=== PATIENT | male | born 1945 | race Caucasian/White ===

== ENCOUNTER 2018-07-08 11:25 | Day surgery (SDC) | payer BC, SELFPAY ==
--- NOTE | 2018-07-08 | PATH_ITS ---
[facility] Accession Number: [id number] . 01 Material submitted: . PART A: POLYP AT 35CM PART B: POLYP AT 30CM . 02 Diagnosis: A. Biopsy, Colon Polyp At 35 CM: Hyperplastic polyp. . B. Biopsy, Colon Polyp At 30 CM: Tubular adenoma. BFI/07/09/2018 . 02 Electronically signed: . Bill Baugh MD, Pathologist NPI- [id number] . 01 Gross description: . Part A: POLYP AT 35CM: Received in formalin is 1 fragment(s) of murray, soft tissue measuring 0.5 x 0.3 x 0.3 cm submitted entirely in 1 cassette(s) Part B: POLYP AT 30CM: Received in formalin is 1 fragment(s) of murray, soft tissue measuring 0.5 x 0.4 x 0.3 cm submitted entirely in 1 cassette(s) /CKI /CKI . 02 Pathologist provided ICD-10: D12.5 . 02 CPT . 954164, 607397 Performed at: 01 [facility] [address] [facility], [place], [place] [id number] MD Niko Marquez MD Phone: [phone] Performed at: 02 [facility] [address] [place], [place] [id number] MD Marjan Ortega MD Phone: [phone]
[2018-07-08] MEDS: SODIUM CHLORIDE 0.9% 1,000 ML 100 ML IV (12:36)
[2018-07-08 12:45] VITALS: BP 150/91; PULSE 70; RESP 20; TEMP 36.4; O2SAT 99; BMI 24.8
--- NOTE | 2018-07-08 13:58 | PM.HP.1 ---
History of Present Illness Date Patient Seen: 07/08/18 Time Patient Seen: 13:58 Chief complaint: [id number] SCREENING COLONOSCOPY Narrative: Lio is a very pleasant 73-year-old gentleman who is here for colonoscopy. Says he has had polyps in the past but a year ago he had colonoscopy and had 4 large ones removed. It was recommended at that time that he should have repeated a year. He is here today to complete that procedure. He denies any change in his bowel habits. He denies any change in his health. Patient History Surgical History History of hip replacement History of hip replacement Social History household members: spouse Family & Social History Social History: household members spouse Meds Home Medications Medication Instructions Recorded Confirmed Type CHOLECALCIFEROL (VITAMIN D) 2,000 iu PO Q DAY #0 09/13/10 History vit C,R-Qk-ezzfu-lutein-zeaxan 1 cap PO QDAY #0 10/27/12 History [Ocuvite Lutein and Zeaxanthin] [PROBIOTIC] Q DAY #0 05/15/16 History felodipine 5 mg PO QDAY #90 tab 08/02/16 07/08/18 Rx alprazolam 0.25 mg PO TID #30 09/24/16 Rx clonidine HCl 0.4 mg PO HS #180 tab 09/27/16 Rx furosemide 10 mg PO QDAY #45 tab 12/28/16 07/08/18 Rx losartan 100 mg PO QDAY #90 tab 12/28/16 07/08/18 Rx metoprolol succinate [Toprol XL] 50 mg PO QDAY #90 tabs 12/28/16 07/08/18 Rx allopurinol 300 mg PO DAILY 07/08/18 07/08/18 History magnesium 400 mg PO DAILY 07/08/18 07/08/18 History Allergies Allergy/AdvReac Type Severity Reaction Status Date / Time Penicillins [PENICILLINS] Allergy Severe ACHILLES Verified 07/08/18 12:36 TENDON PAIN alendronate sodium Allergy Intermediate UNKNOWN Verified 07/08/18 12:36 [ALENDRONATE SODIUM] morphine [MORPHINE] Allergy Intermediate N/V Verified 07/08/18 12:36 oxycodone [OXYCODONE] Allergy Intermediate N/V Verified 07/08/18 12:36 Negkhls-Eco-Pfo Reductase Allergy Intermediate MUSCLE Verified 07/08/18 12:36 Inhibitor PAIN, [JWMWQQC-FPR-EHC REDUCTASE INHIBITOR] TERASOZIN Allergy Severe TACHYTCARDI Uncoded 07/24/17 11:50 A ALL OPIATES Allergy Intermediate N/V, Uncoded 07/24/17 11:50 CONSTIPATION RISENDRONATE Allergy Intermediate UNKNOWN Uncoded 07/24/17 11:50 Review of Systems Review of Systems All systems reviewed & are unremarkable except as noted in HPI and below Exam Vital Signs (past 8 hours): - 07/08/18 12:45 Temperature 97.6 F Pulse Rate 70 Respiratory Rate 20 Blood Pressure 150/91 H Pulse Oximetry 99 Oxygen Delivery Method Room Air Narrative Exam Narrative: Pleasant gentleman in no distress HEENT: Normocephalic and atraumatic, pupils equal round reactive to light accommodation with anicteric sclera lungs: Clear bilaterally Heart: Regular rate and rhythm abdomen: Soft, nontender, active bowel sounds extremities: Warm and well-perfused and without edema Assessment & Plan Assessment & Plan narrative: pleasant 73-year-old gentleman with a personal history of many colon polyps. We discussed the risks and benefits of colonoscopy the patient has expressed a desire to complete the procedure today.
[2018-07-08] MEDS: MIDAZOLAM 5 MG/5 ML VIAL IV (14:00)
[2018-07-08] MEDS: fentaNYL 250 MCG/5 ML INJ IV (14:01)
--- NOTE | 2018-07-08 14:01 | P.HP_ITS ---
History of Present Illness Date Patient Seen: 07/08/18 Time Patient Seen: 13:58 Chief complaint: [id number] SCREENING COLONOSCOPY Narrative: Lio is a very pleasant 73-year-old gentleman who is here for colonoscopy. Says he has had polyps in the past but a year ago he had colonoscopy and had 4 large ones removed. It was recommended at that time that he should have repeated a year. He is here today to complete that procedure. He denies any change in his bowel habits. He denies any change in his health. Patient History Surgical History History of hip replacement History of hip replacement Social History household members: spouse Family & Social History Social History: household members spouse Meds Home Medications Medication Instructions Recorded Confirmed Type CHOLECALCIFEROL (VITAMIN D) 2,000 iu PO Q DAY #0 09/13/10 History vit C,P-Jl-ftgbv-lutein-zeaxan 1 cap PO QDAY #0 10/27/12 History [Ocuvite Lutein and Zeaxanthin] [PROBIOTIC] Q DAY #0 05/15/16 History felodipine 5 mg PO QDAY #90 tab 08/02/16 07/08/18 Rx alprazolam 0.25 mg PO TID #30 09/24/16 Rx clonidine HCl 0.4 mg PO HS #180 tab 09/27/16 Rx furosemide 10 mg PO QDAY #45 tab 12/28/16 07/08/18 Rx losartan 100 mg PO QDAY #90 tab 12/28/16 07/08/18 Rx metoprolol succinate [Toprol XL] 50 mg PO QDAY #90 tabs 12/28/16 07/08/18 Rx allopurinol 300 mg PO DAILY 07/08/18 07/08/18 History magnesium 400 mg PO DAILY 07/08/18 07/08/18 History Allergies Allergy/AdvReac Type Severity Reaction Status Date / Time Penicillins [PENICILLINS] Allergy Severe ACHILLES Verified 07/08/18 12:36 TENDON PAIN alendronate sodium Allergy Intermediate UNKNOWN Verified 07/08/18 12:36 [ALENDRONATE SODIUM] morphine [MORPHINE] Allergy Intermediate N/V Verified 07/08/18 12:36 oxycodone [OXYCODONE] Allergy Intermediate N/V Verified 07/08/18 12:36 Avnfdjb-Tes-Pdq Reductase Allergy Intermediate MUSCLE Verified 07/08/18 12:36 Inhibitor PAIN, [JWMYIIR-ESH-GPQ REDUCTASE INHIBITOR] TERASOZIN Allergy Severe TACHYTCARDI Uncoded 07/24/17 11:50 A ALL OPIATES Allergy Intermediate N/V, Uncoded 07/24/17 11:50 CONSTIPATION RISENDRONATE Allergy Intermediate UNKNOWN Uncoded 07/24/17 11:50 Review of Systems Review of Systems All systems reviewed & are unremarkable except as noted in HPI and below Exam Vital Signs (past 8 hours): - 07/08/18 12:45 Temperature 97.6 F Pulse Rate 70 Respiratory Rate 20 Blood Pressure 150/91 H Pulse Oximetry 99 Oxygen Delivery Method Room Air Narrative Exam Narrative: Pleasant gentleman in no distress HEENT: Normocephalic and atraumatic, pupils equal round reactive to light accommodation with anicteric sclera lungs: Clear bilaterally Heart: Regular rate and rhythm abdomen: Soft, nontender, active bowel sounds extremities: Warm and well-perfused and without edema Assessment & Plan Assessment & Plan narrative: pleasant 73-year-old gentleman with a personal history of many colon polyps. We discussed the risks and benefits of colonoscopy the patient has expressed a desire to complete the procedure today.
--- NOTE | 2018-07-08 14:27 | PM.OP.1 ---
Operative Date/Time/Diagnoses Date of procedure: 07/08/18 Time of procedure: 14:27 Pre-op diagnosis: Personal history of colon polyps Post-op diagnosis: same Procedure & Clinicians Procedure: colonoscopy to the cecum with polypectomy x2 Same procedure as scheduled: Yes Indications: last colonoscopy 1 year ago with multiple polyps Surgeon: Zandra Elias Click Yes if Unassisted: Yes Anesthesia Type: Sedation ( Versed 10 mg; fentanyl 300 mcg) Operative Notes Findings: 1. Adequate prep 2. sessile polyp - approximately 3 mm- at 35 cm from the anal verge. Removed with cold forceps and retained for pathology 3. Semi pedunculated polyp at 30 cm from the anal verge. Removed with snare and cautery and retained for pathology 4. significant diverticulosis from 40 cm to the anal rectal junction 5. Grade 2 internal hemorrhoids Closure Type: not applicable Specimen(s): other ( 1. Polyp at 35 cm, 2. Polyp at 30 cm) Estimated Blood Loss (mL): 2 Procedure in detail: After obtaining informed consent, the patient was brought to the GI suite and placed in the left lateral decubitus position on the examination table. After placement of appropriate monitors, the patient was given incremental doses of Versed and Fentanyl until an appropriate level of sedation was achieved. A time out was held per SCOAP protocol. A digital rectal examination was performed and did not reveal any masses or obstructing lesions. The colonoscope was gently passed into the patient's anus and the entire colon navigated to the level of the cecum with minimal difficulty. Once in the cecum, the scope was withdrawn being sure to go before and beyond all mucosal folds and prominences and get an excellent examination. The findings are noted above. At the level of the rectal vault, the scope was retroflexed and the internal anal canal was examined. The scope was straightened and air aspirated from the colon. The instrument was removed from the patient's body and the procedure was concluded. The patient was allowed to awaken from sedation without difficulty and taken to the post-anesthesia care unit in good condition. total sedation time 31 min total withdrawal time 12 min Complications: none Condition: stable Disposition: PACU Plan for aftercare: 1. Discharge to home 2. Plan for next colonoscopy in 1 year or as clinically indicated 3. We will contact you with the final pathology results and any additional recommendations
[2018-07-08 14:31] VITALS: BP 120/75; PULSE 67; RESP 15; O2SAT 99
[2018-07-08 14:36] VITALS: BP 121/71; PULSE 62; RESP 10; O2SAT 99
--- NOTE | 2018-07-08 14:38 | SUR.PHASEI ---
Assumed care. VS stable. Abd soft. Pt lying on lt side, mostly sleeping. Denied pain.
[2018-07-08 14:41] VITALS: BP 132/72; PULSE 63; RESP 10; O2SAT 98
[2018-07-08 14:55] VITALS: BP 150/83; PULSE 67; RESP 15; TEMP 36.6; O2SAT 99
== END 2018-07-08 15:11 | disposition home or self-care (01) ==
PROVIDERS: Family Provider Family Medicine; PCP Family Medicine; Visit Provider Surgery
PROC: 0DJD8ZZ Inspection of Lower Intestinal Tract, Via Natural or Artificial Opening Endoscopic (ICD-10-PCS; CPT 45378; principal; 2018-07-08 14:00)
DX: Z86.010 Personal history of colon polyps (principal); K57.30 Diverticulosis of large intestine without perforation or abscess without bleeding; K64.1 Second degree hemorrhoids; D12.5 Benign neoplasm of sigmoid colon
CPT/HCPCS: 45385; 45380; 99152; 99153; J2250; J3010

== ENCOUNTER 2018-09-02 10:13 | Day surgery (SDC) | payer BC, SELFPAY ==
[2018-09-02 11:43] VITALS: BP 148/85; PULSE 61; RESP 18; TEMP 36.5; O2SAT 99; BMI 25.0
[2018-09-02] MEDS: PROPARACAINE 0.5% OPHTH SOL 2 DROPS EYE-OP (11:43)
[2018-09-02] MEDS: CATARACT EYE COMPOUND (10 DROPS/SYRINGE) 3 DROPS EYE-OP (11:45)
--- NOTE | 2018-09-02 12:41 | PM.PREOP ---
Pre-operative Note Interval Note History & Physical reviewed/Exam performed by Physician: No Changes to H&P: No
--- NOTE | 2018-09-02 12:41 | PM.OP.1 ---
Operative Date/Time/Diagnoses Pre-op diagnosis: Nuclear Cataract Left eye Post-op diagnosis: same Procedure & Clinicians Surgeon: Dl Calzada Anesthesia Type: MAC +/- and Sedation Operative Notes Procedure in detail: Patient brought to the operating suite. Tetracaine drops placed in the left eye. Patient was prepped and draped in sterile manner. Wire lid speculum was placed in the eye. Betadine drops were placed on the eye. This was irrigated. Lidocaine jelly was placed on the eye. A paracentesis port was created with a side-port blade. 0.1 mL 1% preservative free lidocaine was injected into the anterior chamber. The anterior chamber was deepened with viscoelastic. 2.6 mm keratome was used to create a temporal clear corneal incision. Cystotome and Utrata forceps were used to create continuous tear capsulorrhexis. Balanced salt solution was used to hydro dissect the nucleus. The phacoemulsification handpiece was inserted and the nucleus was removed using the stop and chop technique. The irrigation aspiration handpiece was inserted and the remaining cortex was removed. Anterior chamber was deepened with viscoelastic. An Steiner ZCB00 intraocular lens with a power of 23.5 was injected into the capsular bag. Irrigation aspiration handpiece was inserted and the remaining viscoelastic was removed. Incision was hydrated with balanced salt solution and found to be leak free with pressure with Weck-Mary Jane sponges. 0.1 mL Vigamox injected anterior chamber. 0.3 mL Kenalog 10 mg was injected subconjunctivally. Lid speculum was removed. The patient left the operating room in excellent condition. Complications: none Condition: stable Disposition: same day surgery
[2018-09-02] MEDS: MOXIFLOXACIN OPHTH DROPS 3 ML BOTTLE 2 DROPS INJ (13:29)
[2018-09-02] MEDS: PHENYLEPHRINE/LIDOCAINE VIAL (OR) 0.2 ML EYE-OP (13:29)
[2018-09-02] MEDS: LIDOCAINE JELLY 2% 5 ML 1 APPLIC TOP (13:29)
[2018-09-02] MEDS: CHONDROIDTIN/SOD HYALURONATE 1.05 ML SYRINGE INTRAOCULA (13:29)
[2018-09-02] MEDS: BALANCED SALT IRRIG SOLN NO.2 500 ML, EPINEPHrine 1 MG IRR (13:30)
[2018-09-02] MEDS: TETRACAINE 0.5% OPHTH DROPS 4 ML 2 DROPS EYE-OP (13:30)
[2018-09-02] MEDS: TRIAMCINOLONE 50 MG/5 ML VIAL INJ (13:30)
--- NOTE | 2018-09-02 13:37 | PM.PREOP ---
Pre-operative Note Interval Note History & Physical reviewed/Exam performed by Physician: Yes Changes to H&P: Yes
[2018-09-02 13:43] VITALS: BP 155/76; PULSE 54; RESP 15; TEMP 36.1; O2SAT 98
== END 2018-09-02 13:55 ==
LOC: OR 10:16
PROVIDERS: PCP Family Medicine; Visit Provider Ophthalmology
PROC: (CPT 66984; principal; 2018-09-02 13:15)
DX: H25.12 Age-related nuclear cataract, left eye (principal); I10 Essential (primary) hypertension
CPT/HCPCS: 66984; J0171; J2250; J3010; J3301

== ENCOUNTER → 2021-02-17 08:39 | Outpatient (CLI) | payer BC, SELFPAY ==
--- NOTE | 2021-02-17 08:40 | DI.US.S_ITS ---
PROCEDURE: US SCROTUM INDICATIONS: testicular pain TECHNIQUE: Real-time scanning was performed of the scrotum and testicles, with image documentation. Color and pulse Doppler interrogation was performed of both testicles. COMPARISON: None. FINDINGS: Right: Testicle measures 3.9 x 1.6 x 2.7 cm, and is heterogeneous in echotexture. Scattered foci of calcifications are present. Epididymis is not well visualized. There are 2 cystic structures which appear to be within the pampiniform plexus largest measuring roughly 1.0 cm. No hydrocele or varicoceles. Overlying scrotal skin is slightly thickened Left: Left testicle surgically absent. Doppler: Color and pulse Doppler demonstrate patent vascularity the right testicle. IMPRESSION: 1. Heterogeneous appearance of the right testicle with internal calcifications. The findings suggest sequelae of prior trauma or infection. However, the differential also includes neoplastic infiltration. Recommend correlation with clinical history. Dictated by: Sabas JOHNSON Interpreted: Niko Spears MD on 02/17/2021 at 10:41 Transcribed by: SONIDO on 02/17/2021 at 11:09 Approved by: Niko Spears M.D. on 02/18/2021 at 1:05
== END ==
PROVIDERS: PCP Family Medicine; Referring Provider Specialist; Visit Provider Specialist
DX: N50.811 Right testicular pain (principal); Z85.47 Personal history of malignant neoplasm of testis
CPT/HCPCS: 76870

== ENCOUNTER 2023-07-23 11:10 | Day surgery (SDC) | payer BC, SELFPAY ==
--- NOTE | 2023-07-23 | PATH_ITS ---
[facility] Accession Number: [id number] No. of containers..01 Tissue . 01 Material submitted: . rectum - RECTAL POLYP . 01 Diagnosis: RECTAL POLYP: Hyperplastic polyp. STO 07/26/2023 1434 Local . 01 Electronically signed: . Niko Marquez MD, Pathologist NPI- [id number] . 01 Gross description: . RECTAL POLYP: Received in formalin is 1 fragment(s) of murray, soft tissue measuring 0.3 x 0.3 x 0.2 cm submitted entirely in 1 cassette(s) /DELPHINE 07/26/2023 1434 Local . 01 Pathologist provided ICD-10: K63.5 . 01 CPT . 059379 Specimen Comment: A courtesy copy of this report has been sent to [phone] Performed at: 01 [facility] [address] [place] [id number] MD Niko Marquez MD Phone: [phone]
[2023-07-23 12:25] VITALS: BP 153/92; PULSE 73; RESP 18; TEMP 36.3; O2SAT 96
[2023-07-23] MEDS: LACTATED RINGERS 1,000 ML 150 ML IV (12:37)
--- NOTE | 2023-07-23 13:40 | PM.HP.1 ---
History of Present Illness History of Present Illness Date Patient Seen: 07/23/23 Time Patient Seen: 13:40 Chief complaint: Screening Colonoscopy Narrative: 78-year-old male personal history of colonic polyps here for screening colonoscopy. Last colonoscopy 5 years ago significant for benign polyps. No family history of intestinal malignancy. No abdominal concerns today. [facility] Medical History BPH w urinary obs/LUTS Right testicular pain Surgical History History of hip replacement History of hip replacement Social History household members: spouse Smoking Status: Never smoker alcohol intake: current Meds Home Medications and Allergies Home Medications Medication Instructions Recorded Confirmed Type CHOLECALCIFEROL (VITAMIN D) 2,000 iu PO Q DAY ##0 09/13/10 03/02/21 History vit C,V-Qi-jzmdww-lutein-zeaxan 60 1 cap PO QDAY ##0 10/27/12 03/02/21 History mg-13.5 mg-15 mg-2 mg-6 mg capsule (Ocuvite Lutein and Zeaxanthin) clonidine HCl 0.2 mg tablet 0.4 mg (2 x 0.2 mg) PO HS #180 tabs 09/27/16 03/02/21 Rx furosemide 20 mg tablet 10 mg (1/2 x 20 mg) PO QDAY #45 12/28/16 03/02/21 Rx tabs allopurinol 300 mg tablet 300 mg PO DAILY 07/08/18 03/02/21 History tamsulosin 0.4 mg capsule 0.4 mg PO BEDTIME #90 caps 01/26/21 03/02/21 Rx peg 3350-sod sulf,gwjld-koa-cfg 1,000 ml PO DIRECTED #2,000 mL 06/12/23 Rx 178.7-7.3-0.5-1.12-0.9 gram oral soln (Suflave) felodipine 5 mg tablet,extended 2.5 mg PO QDAY 07/23/23 07/23/23 History release 24 hr Allergies Allergy/AdvReac Type Severity Reaction Status Date / Time alendronate sodium Allergy Intermediate Muscle Pain Verified 07/23/23 12:07 [ALENDRONATE SODIUM] morphine [MORPHINE] AdvReac Mild N/V Verified 07/23/23 12:07 oxycodone [OXYCODONE] AdvReac Mild N/V Verified 07/23/23 12:07 Gsgruep-OYV-WvG Reductase AdvReac Mild MUSCLE Verified 07/23/23 12:07 Inhibitor PAIN, [ZBXWMNF-JEM-PYN REDUCTASE INHIBITOR] RISENDRONATE Allergy Intermediate Muscle Pain Uncoded 07/23/23 12:07 TERASOZIN Allergy Intermediate TACHYTCARDI Uncoded 07/23/23 12:07 A ALL OPIATES AdvReac Mild N/V, Uncoded 07/23/23 12:07 CONSTIPATION Exam Vital Signs (past 8 hours): - 07/23/23 12:25 Temperature 97.3 F L Pulse Rate 73 Respiratory Rate 18 Blood Pressure 153/92 H Pulse Oximetry 96 Oxygen Delivery Method Room Air Oxygen Delivery Method Room Air Narrative Exam Narrative: General adult man alert oriented no acute distress Chest nonlabored respiration Extremities warm well perfused Assessment & Plan Assessment & Plan narrative: The patient requires colorectal screening and colonoscopy is recommended. Technical details were discussed. Risks, benefits, alternatives explained. Risks including but not limited to myocardial infarction, aspiration, bleeding, pain, missed lesion, incomplete examination, need for further radiographic studies, colonic perforation, and need for major abdominal surgery were discussed. All questions were answered to their satisfaction, and they are in agreement with this plan.
--- NOTE | 2023-07-23 13:42 | P.OP.COLON_ITS ---
Operative Date/Time/Diagnoses Date of procedure: 07/23/23 Time of procedure: 13:43 Pre-op diagnosis: Personal history of colonic polyps Procedure & Clinicians Study performed: Screening colonoscopy Same procedure as scheduled: Yes Indications: Colorectal screening Personal history of colonic polyps Surgeon: Rojas Astudillo Procedure Notes Procedure in detail: The history and physical was performed/updated and the patient is ASA class is 2. The procedure was discussed in detail with the patient. Potential risks complications including infection, bleeding, missed diagnosis, perforation, need for surgery, and were explained. Their questions were answered and informed consent was obtained. Patient was brought to the procedure room and placed standard monitoring equipment. The patient's vital signs were monitored continuously throughout the entire procedure. Prior to starting time-out was performed. The patient was placed in the left lateral recumbent position. Procedural sedation was administered by anesthesia. Examination began with a thorough inspection of the perianal area there was no evidence of fissures, fistulae, external hemorrhoids or cutaneous malignancy. The colonoscopy scope was then placed into the anal canal and was advanced to the cecum, which was identified by the ileocecal valve, the appendiceal orifice and the confluence of the taenia. The scope was then slowly withdrawn examining colon thoroughly in all directions, irrigating it of any residual stool. The scope was retroflexed within the rectum The patient tolerated the procedure well. They will be discharged once criteria are met. The prep was of fair quality. The withdrawl time was 6 minutes. FINDINGS * Distal rectum-5 mm polyp removed in entirety with cold snare. * Descending colon-extensive diverticulosis Specimen(s): other (Rectal polyp) Impression: Colonic polyp x1 Post-procedure Recommendations: High fiber diet Plan for aftercare: Follow-up is dependent on pathology findings Disposition: same day surgery
[2023-07-23 14:05] VITALS: BP 134/85; PULSE 79; RESP 20; TEMP 36.6; O2SAT 96
[2023-07-23 14:10] VITALS: BP 119/70; PULSE 84; RESP 16; O2SAT 97
[2023-07-23 14:15] VITALS: BP 117/53; PULSE 79; RESP 18; O2SAT 98
[2023-07-23 14:23] VITALS: BP 137/65; PULSE 80; RESP 16; O2SAT 99
== END 2023-07-23 14:45 | disposition home or self-care (01) ==
PROVIDERS: PCP Family Medicine; Referring Provider Surgery; Visit Provider Surgery
PROC: 0DJD8ZZ Inspection of Lower Intestinal Tract, Via Natural or Artificial Opening Endoscopic (ICD-10-PCS; CPT 45378; principal; 2023-07-23 13:15)
DX: Z12.11 Encounter for screening for malignant neoplasm of colon (principal); Z86.010 Personal history of colon polyps; K57.30 Diverticulosis of large intestine without perforation or abscess without bleeding; K63.5 Polyp of colon
CPT/HCPCS: 45385; J2704

== ENCOUNTER → 2025-01-26 08:10 | Outpatient (CLI) | payer BC, SELFPAY ==
--- NOTE | 2025-01-26 08:12 | DI.ECHO.S_ITS ---
[facility] : : [address] : : [place] : : [id number] : : Phone: [phone] Echocardiogram Report + + :Name: HOLDEN CHAWLA Study Date: 01/26/2025 Height: 72 in : :[facility] ReadingLocation: Weight: 198 lb : : Gender: Male BSA: 2.1 m2 : :: 1945 Age: 79 yrs BP: 188/88 mmHg: :Reason For Study: Chest pain : :Ordering Physician: ARTURO STONE Performed By: Yolanda Darby : :Referring: ARTURO STONE : + + Interpretation Summary - The left ventricular contractility is borderline. Estimated ejection fraction is approximately 50 to 55% with no segmental wall motion abnormalities. No LVH. Grade 1 diastolic dysfunction. - Right ventricular contractility is normal. - Mild left atrial enlargement. All other cardiac chambers are of normal size. - Mild aortic insufficiency. - No obvious intracardiac shunts. - No obvious intracardiac masses nor thrombi. - No hemodynamically significant pericardial effusion. - Low right-sided filling pressures. - Moderately enlarged aortic root as well as ascending thoracic aorta with involvement of the aortic arch. No obvious dissection is noted. Conclusion: Low normal left ventricular systolic function with mild aortic insufficiency. Thoracic aortic aneurysm without obvious dissection noted. Procedure: A two-dimensional transthoracic echocardiogram with color flow and Doppler was performed. The study quality was technically adequate. There is no prior echocardiogram noted for this patient. The heart rate ranged between 61-72 bpm during the study. Left Ventricle: The left ventricle is normal in size and wall thickness. The ejection fraction is estimated to be 50-55%. Grade I diastolic dysfunction with normal left atrial pressure. Right Ventricle: The right ventricle grossly appears normal in size with probable normal systolic function. Atria: The left atrium is mildly dilated. Right atrial size is normal. The interatrial septum grossly appears intact with no obvious evidence for an atrial septal defect. Mitral Valve: The mitral valve leaflets appear borderline thickened. There is no mitral regurgitation noted. Aortic Valve: The aortic valve opens well. There is no aortic valve stenosis. There is mild aortic regurgitation. Tricuspid Valve: The tricuspid valve leaflets are thin and pliable. There is a trace or physiologic amount of tricuspid regurgitation. Pulmonic Valve: The pulmonic valve is not well visualized. There is trace pulmonic regurgitation. Great Vessels: The aortic root is moderately dilated. The ascending aorta is moderately enlarged. The aortic arch is mildly enlarged. The IVC is of normal diameter and collapses greater than 50% with a sniff. This suggests a low right atrial pressure of 3 mm Hg. Pericardium/ Pleura There is no pericardial effusion. There is no pleural effusion. MMode/2D Measurements & Calculations LVIDd: 5.4 cm LVOT diam: 2.4 cm LVIDs: 3.6 cm Ao root diam: 4.2 cm FS: 33.3 % asc Aorta Diam: 4.8 cm EPSS: 1.1 cm Ao Arch Diam (Prox Trans): 3.5 cm IVSd: 0.78 cm LVPWd: 1.0 cm LV martínez. diameter/BSA (cm/m^2): 2.6 LV sys. diameter/BSA (cm/m^2): 1.7 LA A2 area: 23.7 cm2 RA long axis: 5.1 cm LA A4 area: 23.1 cm2 RA area: 15.8 cm2 LA length (vol): 5.9 cm RA vol: 41.4 ml LA vol: 79.0 ml RA : 19.5 ml/m2 LA vol index: 37.2 ml/m2 IVC diam: 1.6 cm RVD1 (basal): 2.0 cm TAPSE: 2.0 cm Doppler Measurements & Calculations Ao V2 max: 206.4 cm/sec LVOT Max Gino: 83.7 cm/sec Ao V2 mean: 153.5 cm/sec LV V1 max P.8 mmHg Ao max P.0 mmHg LV V1 VTI: 19.0 cm Ao mean P.3 mmHg SWAPNA(I,D): 1.9 cm2 Ao V2 VTI: 46.7 cm SWAPNA(V,D): 1.9 cm2 sev ratio: 0.41 SWAPNA indexed to BSA (cm^2/m^2): 0.90 AI P1/2t: 558.9 msec AI dec slope: 250.1 cm/sec2 MV E max gino: 51.5 cm/sec TR max gino: 222.8 cm/sec MV A max gino: 123.5 cm/sec TR max P.8 mmHg MV E/A: 0.42 PA V2 max: 91.8 cm/sec Med Peak E' Gino: 3.6 cm/sec PA V2 mean: 59.5 cm/sec E/E' med: 14.3 PA mean P.7 mmHg Lat Peak E' Gino: 4.5 cm/sec PA pr(Accel): 22.5 mmHg E/E' lat: 11.6 E/e' average: 12.9 MV dec time: 0.28 sec SV(LVOT): 89.3 ml Reading Physician:YULISA
--- NOTE | 2025-01-26 17:46 | DI.NM.S_ITS ---
DATE OF SERVICE: 01/26/2025 PROCEDURE: Pharmacological perfusion study. INDICATIONS: Angina equivalent, history of paroxysmal atrial tachycardia, hypertension. RADIOPHARMACEUTICAL: 25.9 millicuries technetium-99m Myoview IV was injected at stress and 12.9 millicuries technetium-99m Myoview IV was injected at rest. CARDIAC STRESS: The patient underwent IV Lexiscan perfusion study under the supervision of an attending staff using standard IV Lexiscan as per protocol. The patient remained hemodynamically stable. Baseline blood pressure 166/90. Rhythm sinus with heart rate about [address]-T changes and PACs. During stress no new convincing ischemic changes or significant arrhythmias seen. No chest pain. The patient had minimal dyspnea. RAW DATA: There is increased subdiaphragmatic activity and hot spot near the inferior border and apex. GATED STUDY: Resting LV ejection fraction 50% and stress LV ejection fraction 62% without any obvious wall motion abnormalities. Resting end- diastolic volume 161 mL. TID ratio 0.88, which is within normal limits. MYOCARDIAL PERFUSION SCAN: Please note this patient does not have any stress prone images. Stress supine and resting supine images were compared to each other. There is predominantly fixed, large size, moderate to severely decreased perfusion of inferior wall as well as mildly decreased perfusion of anterior septum and on resting supine images there is an additional perfusion defect of base to mid inferior septum as well, which was not seen during stress supine images. Predominantly fixed defect. No obvious reversible ischemia. No prone images. CONCLUSION: There is a predominantly fixed, large size, moderate to severely decreased perfusion of inferior wall, mildly decreased perfusion of anterior septum and in addition to that during resting supine images, base to mid inferior septal defect as well. There are no stress prone images. However, on raw data, there is increased subdiaphragmatic activity and hot spot near the inferior border and apex. On gated study, stress LV ejection fraction 62% without any obvious wall motion abnormalities. Inferior wall zen well. Hence, likely we are dealing with tissue attenuation artifact; however, cannot rule out for old nontransmural myocardial infarction for sure. In absence of reversible ischemia and preserved LV function, overall appears to be low-risk cardiac stress test. Correlate clinically. Lio Mayen - ROHIT/janet/AY doc#: [id number]/job#: [id number] dd: 01/26/2025 16:58:00 dt: 01/26/2025 17:38:00 DICTATING MD/COPIES TO: Miguel Benjamin MD COPIES MNE: MANUELA;
== END ==
LOC: NUCM 08:11
PROVIDERS: PCP Family Medicine; Referring Provider Internal Medicine; Visit Provider Internal Medicine
DX: I08.0 Rheumatic disorders of both mitral and aortic valves (principal); I20.89 Other forms of angina pectoris; I44.7 Left bundle-branch block, unspecified; I71.21 Aneurysm of the ascending aorta, without rupture
CPT/HCPCS: 78452; 93017; 93306; A9502; J2785

== ENCOUNTER → 2025-02-23 10:23 | Outpatient (CLI) | payer BC, SELFPAY ==
--- NOTE | 2025-02-23 10:25 | DI.CT.S_ITS ---
PROCEDURE: CT CHEST WO CON
== END ==
PROVIDERS: Referring Provider Internal Medicine; Visit Provider Internal Medicine
DX: I71.21 Aneurysm of the ascending aorta, without rupture (principal); I71.22 Aneurysm of the aortic arch, without rupture; K44.9 Diaphragmatic hernia without obstruction or gangrene
CPT/HCPCS: 71250